=== PATIENT | female | born 1995 | race Caucasian/White ===

== ENCOUNTER → 2022-12-22 15:24 | Outpatient (CLI) | payer OTHER, MEDICAID, SELFPAY ==
--- NOTE | 2022-12-22 15:25 | DI.RAD.S_ITS ---
PROCEDURE: XR ANKLE LT MIN 3V INDICATIONS: Possible sprain vs fracture in talus TECHNIQUE: 3 views of the ankle were acquired. COMPARISON: None. FINDINGS: Bones: No fractures or dislocations. Ankle mortise is normally aligned. No suspicious bony lesions. Soft tissues: No tibiotalar joint effusion. Achilles tendon appears normal. IMPRESSION: No acute fracture. No osseous lesion. If symptoms and/or clinical suspicion for pathology persist, further assessment with repeat, or advanced imaging (e.g., CT, MRI, or bone scan) may be helpful for further assessment. Dictated by: Ty Cheney M.D. on 12/22/2022 at 16:04 Approved by: Ty Cheney M.D. on 12/22/2022 at 16:04
--- NOTE | 2022-12-22 15:25 | DI.RAD.S_ITS ---
PROCEDURE: XR FOOT LT MIN 3V INDICATIONS: Possible sprain vs fracture in anterior TECHNIQUE: 3 views of the foot were acquired. COMPARISON: None. FINDINGS: Bones: No fractures or dislocations. No suspicious bony lesions. Soft tissues: No tibiotalar joint effusion. Achilles tendon appears normal. IMPRESSION: No fracture. No osseous lesion. If symptoms and/or clinical suspicion for pathology persists, further assessment with repeat radiographs (7-10 days) or advanced imaging (e.g. CT, MRI or bone scan) should be considered. Dictated by: Hermelinda Navas MD, PhD on 12/22/2022 at 16:20 Approved by: Hermelinda Navas MD, PhD on 12/22/2022 at 16:21
== END ==
PROVIDERS: Referring Provider Physician Assistant; Visit Provider Physician Assistant
DX: M25.572 Pain in left ankle and joints of left foot (principal)
CPT/HCPCS: 73610; 73630

== ENCOUNTER → 2024-11-23 07:55 | Outpatient (CLI) | payer OTHER, SELFPAY ==
[2024-11-23 08:42] LABS: COVID-19 CEPHEID 4-PLEX PCR Negative (Negative); Influenza A - CEPHEID Flu A NEGATIVE (NEGATIVE); Influenza B - CEPHEID Flu B NEGATIVE (NEGATIVE); Respiratory Syncytial Virus Negative (Negative)
== END ==
PROVIDERS: Visit Provider Physician Assistant
DX: R05.1 Acute cough (principal); J02.9 Acute pharyngitis, unspecified
CPT/HCPCS: 0241U; 87070

== ENCOUNTER 2025-06-22 07:05 | Emergency (ER) | payer OTHER, SELFPAY ==
[2025-06-22] VITALS (11 sets, daily range): BP systolic 121–158; BP diastolic 60–115; PULSE 63–88; RESP 17–35; TEMP 36.6; O2SAT 95–100; BMI 29.2
--- NOTE | 2025-06-22 07:24 | ED_ITS ---
HPI - Abdominal Pain
--- NOTE | 2025-06-22 07:24 | ED.ABDPAIN ---
HPI - Abdominal Pain General Chief Complaint: Abdominal Pain Stated Complaint: Throwing up all night , tingly , numbness Time Seen by Provider: 06/22/25 07:14 Source: patient Mode of arrival: Ambulatory History of Present Illness HPI narrative: 30-year-old female history of hysterectomy and tubal ligation anxiety presents with abdominal pain along with multiple episodes of nonbilious nonbloody nausea vomiting after drinking 4 alcoholic drinks and also on currently on Contrave medication for weight loss management. Patient denies any rectal bleeding, blood in the vomit, but is feeling lightheaded, dizzy, and having numbness tingling down her extremities. Other than what is stated 14 point review of system is negative Related Data Previous Rx's ?Medication ?Instructions ?Recorded ondansetron HCl 4 mg tablet 4 mg PO Q6H PRN nausea and 06/22/25 vomiting #30 tabs Allergies Allergy/AdvReac Type Severity Reaction Status Date / Time No Known Drug Allergies Allergy Verified 06/22/25 07:17 Review of Systems Review of Systems ROS Unobtainable: All systems reviewed & are unremarkable except as noted in HPI and below Patient History Social History Smoking Status: Never smoker Smoking Status: Never smoker Exam Narrative Exam Narrative: GENERAL: [30] year old patient appears stated age. Well-developed patient, in mild distress. HEAD: Atraumatic. Normocephalic. EYES: Pupils equal round and reactive. Extraocular motions intact. No scleral icterus. No injection or drainage. ENT: Nose without bleeding, purulent drainage. Throat without erythema, tonsillar hypertrophy or exudate. Airway patent. NECK: Trachea midline. Non tender CARDIOVASCULAR: Regular rate and rhythm without murmurs, gallops, or rubs. RESPIRATORY: Clear to auscultation. Breath sounds equal bilaterally. No wheezes, rales, or rhonchi. GASTROINTESTINAL: Abdomen soft, non-tender, nondistended. EXTREMITIES: No edema or joint tenderness. BACK: Nontender without deformity or crepitance. No flank tenderness. NEURO: AOx3. SKIN: No rash or erythema of visible areas Initial Vital Signs Initial Vital Signs: Vital Signs Pulse Rate 84 06/22/25 07:13 Blood Pressure 158/115 H 06/22/25 07:13 Pulse Oximetry 99 06/22/25 07:13 Course Orders Ordered: ED Orders 06/22/25 07:29 Complete Blood Count AUTO DIFF Stat Comprehensive Metabolic Panel Stat Lipase Stat 06/22/25 07:31 CT abdomen pelvis w con Stat Ondansetron HCl (Ondansetron 4 Mg/2 Ml Inj) 4 mg IV NOW PRN PRN Reason: Nausea And Vomiting Last Admin: 06/22/25 07:45 Dose: 4 mg Documented By: KEIRA Ondansetron HCl (Ondansetron 4 Mg Odt) 4 mg PO NOW PRN PRN Reason: Nausea And Vomiting Discontinued Medications Diphenhydramine HCl (Diphenhydramine 50 Mg/Ml Vial) 50 mg IV NOW ONE Stop: 06/22/25 07:57 Last Admin: 06/22/25 08:09 Dose: 50 mg Documented By: KEIRA Droperidol (Droperidol 2.5 Mg/Ml Vial) 2.5 mg IV NOW ONE Stop: 06/22/25 07:57 Last Admin: 06/22/25 08:10 Dose: 2.5 mg Documented By: KEIRA Lactated Ringer's (Lactated Ringers) 1,000 mls @ 1,000 mls/hr IV BOLUS ONE Stop: 06/22/25 08:24 Last Infusion: 06/22/25 09:12 Dose: Infused Documented By: Admin: 06/22/25 07:46 Dose: 1,000 mls/hr Documented By: KEIRA Ketorolac Tromethamine (Ketorolac 30 Mg/Ml Vial) 15 mg IV NOW ONE Stop: 06/22/25 07:32 Last Admin: 06/22/25 07:48 Dose: 15 mg Documented By: KEIRA Vital Signs Vital signs: Vital Signs - 8 hr 06/22/25 07:13 06/22/25 07:13 06/22/25 07:17 Temperature 97.8 F Pulse Rate 84 88 Respiratory Rate 24 Blood Pressure 158/115 H 158/115 H Pulse Oximetry 99 99 Oxygen Delivery Method Room Air 06/22/25 07:30 06/22/25 07:31 06/22/25 07:31 Temperature Pulse Rate 80 81 Respiratory Rate 18 24 Blood Pressure 137/85 Pulse Oximetry 100 98 Oxygen Delivery Method 06/22/25 08:00 06/22/25 08:15 06/22/25 08:15 Temperature Pulse Rate 76 79 Respiratory Rate 26 H 24 Blood Pressure 128/84 Pulse Oximetry 99 100 Oxygen Delivery Method 06/22/25 08:20 11/07/25 08:20 06/22/25 08:34 Temperature Pulse Rate 71 79 Respiratory Rate 24 35 H Blood Pressure 121/60 Pulse Oximetry 98 95 Oxygen Delivery Method 06/22/25 09:00 06/22/25 09:30 06/22/25 10:00 Temperature Pulse Rate 63 66 71 Respiratory Rate 23 17 18 Blood Pressure Pulse Oximetry 100 99 98 Oxygen Delivery Method MDM - Abdominal Pain Lab Data 06/22/25 07:29 06/22/25 07:29 Labs: Lab Results 06/22/25 Range/Units 07:29 WBC 14.1 H (4.5-11.0) X10^3/uL RBC 4.86 (4.0-5.2) X10^6/uL Hgb 14.6 (12.0-16.0) g/dL Hct 41.7 (36-46) % MCV 85.7 (80-100) fL MCH 30.1 (26-34) PG MCHC 35.1 (30-36) % RDW 13.0 (11.6-14.8) % Plt Count 513 H (150-400) X10^3/uL Neut % (Auto) 81.1 H (50-75) % Lymph % (Auto) 12.6 L (25-40) % Edmunds % (Auto) 5.5 (3-14) % Eos % (Auto) 0.4 L (2-4) % Baso % (Auto) 0.4 (0-2) % Neut # (Auto) 38629 H (0265-8112) /uL Lymph # (Auto) 1800 (0115-0745) /uL Edmunds # (Auto) 800 (0-900) /uL Eos # (Auto) 100 (0-450) /uL Baso # (Auto) 100 (0-100) /uL Sodium 139 (137-145) mmol/L Potassium 3.7 (3.4-5.1) mmol/L Chloride 107 (98-107) mmol/L Carbon Dioxide 14 L (22-32) mmol/L BUN 11 (7-17) mg/dL Creatinine 0.66 (0.52-1.04) mg/dL Estimated GFR > 60 (>60) mL/min BUN/Creatinine Ratio 16.7 (6-22) Glucose 147 H (70-99) mg/dL Calcium 9.7 (8.4-10.2) mg/dL Total Bilirubin 1.1 (0.2-1.3) mg/dL AST 29 (14-36) IU/L ALT 23 (<35) IU/L Alkaline Phosphatase 65 (38-126) U/L Total Protein 8.4 H (6.3-8.2) g/dL Albumin 5.0 (3.5-5.0) g/dL Globulin 3.4 (1.7-4.1) g/dL Albumin/Globulin Ratio 1.5 (1.0-2.8) Lipase 64 (23-300) U/L Imaging Data CT scan - abdomen/pelvis: Radiologist's Impression: [address] [address] [address] Scan Report Signed Patient: Thania Mora MR#: [id number] : 1995 Acct:[id number] Age/Sex: 30 / F Date of Service: 06/22/25 Loc: ED Accession Number: [id number] Procedure: CT abdomen pelvis w con Ordering Provider: Dong Pino D.O. PROCEDURE: CT ABDOMEN PELVIS W CON INDICATIONS: abd pain n/v TECHNIQUE: After the administration of intravenous contrast, axial sections acquired from the lung bases to the pubic symphysis. Coronal and sagittal reformats were performed. For radiation dose reduction, the following was used: automated exposure control, adjustment of mA and/or kV according to patient size. COMPARISON: [facility], CT, CT ABDOMEN PELVIS WITH CONTRAST, 05/07/2020, 15:09. FINDINGS: Image quality: Diagnostic. Lower Chest: No significant findings. ABDOMEN: Liver: No solid mass. Gallbladder: No radiopaque gallstones or wall thickening. Biliary ducts: No biliary dilation. Pancreas: No ductal dilation. Spleen: Size is within normal limits. Adrenal Glands: No adrenal nodules. Kidneys and Ureters: No hydronephrosis. No solid mass. No complex renal cystic lesion which requires follow up. Stomach and Bowel: Normal colonic caliber, without significant wall thickening. Peritoneum: No abnormal intraperitoneal fluid. No free air. Ventral Wall: No significant ventral hernia. Abdominal Nodes: No retroperitoneal or mesenteric adenopathy by size criteria. Previously noted prominent right lower quadrant lymph nodes have resolved. Vessels: Aorta and inferior vena cava are normal in size. PELVIS: Pelvic Organs: Unremarkable. Bladder: No bladder wall thickening, accounting for underdistention. Pelvic Nodes: No enlarged lymph nodes. Miscellaneous: No inguinal hernias are seen. Bones: No aggressive osseous abnormality. IMPRESSION: No visualized acute intra-abdominal or pelvic process. Dictated by: Alida Sousa M.D. on 06/22/2025 at 8:49 Approved by: Alida Sousa M.D. on 06/22/2025 at 8:51 MDM Narrative Medical decision making narrative: All lab work, vital signs, nurse triage note, medication list previous ER visits and all imaging studies reviewed. WBC 14.1 hemoglobin 14.6 platelet 513 sodium 139 potassium 3.7 chloride 107 CO2 14 BUN 11 creatinine 0.66 glucose [address] abdomen and pelvis showed no acute process. Patient given fluids Toradol Zofran Benadryl droperidol feels much better on reexamination. Differential diagnosis includes pancreatitis, diverticulitis, kidney stone, kidney infection, appendicitis, cholecystitis, contrave side effect with alcohol. Discharge Plan Departure Patient Disposition: Home Clinical Impression: Nausea & vomiting, Abdominal pain Instructions: DI for Abdominal Pain-Adult Activity Restrictions/Additional Instructions: Return with new or worsening symptoms. Keep hydrated. Clear liquid diet advance as tolerated. Take medicine as directed. Follow up PCP in 1-2 weeks if no improvement in symptoms. Prescriptions: New ondansetron HCl 4 mg tablet 4 mg PO Q6H PRN (Reason: nausea and vomiting) Qty: 30 0RF Stand Alone Forms: Patient Portal/API
--- NOTE | 2025-06-22 07:31 | DI.CT.S_ITS ---
PROCEDURE: CT ABDOMEN PELVIS W CON
[2025-06-22 07:37] LABS: Add Manual Diff / Slide Review NO; Hematocrit 41.7 % (36-46); Hemoglobin 14.6 g/dL (12.0-16.0); Lymphocytes Absolute Auto 1800 /uL (1100-4500); Mean Corpuscular HGB Conc 35.1 % (30-36); Mean Corpuscular Hemoglobin 30.1 PG (26-34); Mean Corpuscular Volume 85.7 fL (80-100); Platelet Count 513 X10^3/uL (150-400)
[2025-06-22] MEDS: ONDANSETRON 4 MG/2 ML INJ IV (07:45)
[2025-06-22] MEDS: LACTATED RINGERS 1,000 ML 1000 ML IV (07:46)
[2025-06-22 07:47] LABS: Alanine Aminotransferase 23 IU/L (<35); Albumin 5.0 g/dL (3.5-5.0); Albumin Globulin Ratio 1.5 (1.0-2.8); Alkaline Phosphatase 65 U/L (38-126); Blood Urea Nitrogen 11 mg/dL (7-17); Calcium 9.7 mg/dL (8.4-10.2); Carbon Dioxide 14 mmol/L (22-32); Chloride 107 mmol/L (98-107); Estimated Glomerular Filt Rate > 60 mL/min (>60); Globulin 3.4 g/dL (1.7-4.1); Glucose 147 mg/dL (70-99); HEMOLYSIS < 15 (0-50); Lipase 64 U/L (23-300); Potassium 3.7 mmol/L (3.4-5.1); Sodium 139 mmol/L (137-145); Total Protein 8.4 g/dL (6.3-8.2)
[2025-06-22] MEDS: KETOROLAC 30 MG/ML VIAL 15 MG IV (07:48)
[2025-06-22] MEDS: diphenhydrAMINE 50 MG/ML VIAL IV (08:09)
[2025-06-22] MEDS: droPERidol 2.5 MG/ML VIAL IV (08:10)
[2025-06-22 11:08] LABS: Culture Indicated Urine Cult Not Indicated
== END 2025-06-22 10:38 | disposition home or self-care (01) ==
PROVIDERS: Emergency Provider Family Medicine
DX: R10.9 Unspecified abdominal pain (principal); R11.2 Nausea with vomiting, unspecified; Z90.710 Acquired absence of both cervix and uterus
CPT/HCPCS: 36415; 74177; 80053; 81003; 81015; 83690; 85025; 87086; 96361; 96374; 96375; 99284; J1200; J1790; J1885; J2405; J7120; Q9967